=== PATIENT | male | born 1985 | race Caucasian/White ===

== ENCOUNTER 2021-12-17 04:06 | Emergency (ER) | payer SELFPAY ==
[~2021-12-17] VITALS: Ht 188 cm; Wt 113.6 kg
[2021-12-17 04:33] VITALS: BP 139/96
== END 2021-12-17 04:41 ==
LOC: ER 04:07
DX: I11.9 Hypertensive heart disease without heart failure (principal)
CPT/HCPCS: 93005; 99283

== ENCOUNTER 2022-02-25 12:13 | Emergency (ER) | payer MEDICAID ==
[~2022-02-25] VITALS: Ht 182.9 cm; Wt 113.6 kg
[2022-02-25 13:43] VITALS: BP 131/92
[2022-02-25] MEDS ORDERED: LIDOcaine 1% W/epiNEPHrine 1:100,000 20ml vial SQ ONE (15:45)
[2022-02-25] MEDS ORDERED: LIDOcaine 1% w/EPI 1:100,000 30ml vial (MDV) SQ ONE (15:50)
[2022-02-25] MEDS ORDERED: bacitracin 15gm ointment TP ONE (16:25)
[2022-02-25] MEDS ORDERED: sulfamethoxazole/trimethoprim DS (800/160mg) tablet PO ONE (16:55)
[2022-02-25] MEDS ORDERED: cephalexin 500mg capsule PO ONE (16:55)
[2022-02-25] MEDS ORDERED: CEPH500C81 PO (17:03)
[2022-02-25] MEDS ORDERED: SULF1TAB49 PO (17:03)
== END 2022-02-25 17:23 | disposition home or self-care (01) ==
LOC: ER 12:17
DX: S01.01XA Laceration without foreign body of scalp, initial encounter (principal); Y04.0XXA Assault by unarmed brawl or fight, initial encounter; Y93.89 Activity, other specified; Y92.89 Other specified places as the place of occurrence of the external cause; Y99.8 Other external cause status
CPT/HCPCS: 12001; 70450; 99284; J7030; A6449